=== PATIENT | male | born 1950 | race Caucasian/White ===

== ENCOUNTER 2017-07-21 07:17 | Day surgery (SDC) | payer MEDICARE, BC ==
[~2017-07-21 07:17] MED LIST: Lidocaine 1% PF 2 ML SDV INJECT SCH; Pilocarpine 4% Ophth Soln 15 ML Bot EYERT SCH
[2017-07-21] MEDS: Polymyxin B/Trimethoprim 10 ML Bottle EYERT SCH ×3 (07:26→09:14)
--- NOTE | 2017-07-21 07:28 | PCM.PREANE ---
Preanesthetic Assessment - Anesthesia/Transfusion/Family Hx Anesthesia History: Prior Anesthesia Without Reaction Family History of Anesthesia Reaction: No - Review of Systems General: No Symptoms Pulmonary: No Symptoms Cardiovascular: Other (HTN) Gastrointestinal: No Symptoms Neurological: No Symptoms Other: Reports: None - Physical Assessment NPO Status Date: 07/20/17 NPO Status Time: 21:30 Pulse: 64 O2 Sat by Pulse Oximetry: 96 Respiratory Rate: 16 Blood Pressure: 161/90 Height: 1.78 m Weight: 102.058 kg ASA Class: 2 Mental Status: Alert & Oriented x3 Airway Class: Mallampati = 2 Dentition: Reports: Normal Dentition Thyro-Mental Finger Breadths: 3 Mouth Opening Finger Breadths: 3 ROM/Head Extension: Full Lungs: Clear to Auscultation, Normal Respiratory Effort Cardiovascular: Regular Rate, Regular Rhythm - Allergies Allergies/Adverse Reactions: Allergies Allergy/AdvReac Type Severity Reaction Status Date / Time alcohol Allergy Redness Verified 07/20/17 12:47 amlodipine [From [facility]] AdvReac Headache Verified 07/20/17 12:47 metoprolol AdvReac Headache Verified 07/20/17 12:47 - Blood Blood Available: No Product(s) Available: None - Anesthesia Plan Pre-Op Medication Ordered: None - Acknowledgements Anesthesia Type Planned: MAC Pt an Appropriate Candidate for the Planned Anesthesia: Yes Alternatives and Risks of Anesthesia Discussed w Pt/Guardian: Yes Pt/Guardian Understands and Agrees with Anesthesia Plan: Yes PreAnesthesia Questionnaire Cardiovascular History: Reports: Hypertension Other Cardiovascular History: SVT (cardiac ablation done in September 2015), palpitations Other Gastrointestinal History: liver lesion Other Genitourinary History: erectile dysfunction Neurological History: Reports: Headaches, Chronic - Past Surgical History GI Surgical History: Reports: Appendectomy, Other (See Below) - SUBSTANCE USE Smoking Status *Q: Never Smoker Tobacco Use Within Last Twelve Months: No Second Hand Smoke Exposure: No Recreational Drug Use History: No - HOME MEDS Home Medications: Home Meds Losartan Potassium 25 mg PO DAILY 12/30/15 [History] - CURRENT (IN HOUSE) MEDS Current Meds: Current Medications Brimonidine Tartrate (Alphagan 0.2% Ophth Soln) 0 ml EYERT ASDIRECTED LENNOX Stop: 07/21/17 18:00 Cefuroxime Sodium (Zinacef) 0 mg EYERT ASDIRECTED LENNOX Stop: 07/21/17 18:00 Lidocaine HCl (Xylocaine-Mpf 1%) 10 ml INJECT ASDIRECTED LENNOX Stop: 07/21/17 18:00 Phenylephrine HCl (Jonas-Synephrine 2.5% Ophth Soln) 0 ml EYERT ASDIRECTED LENNOX Stop: 07/21/17 18:00 Pilocarpine HCl (Pilocar 4% Ophth Soln) 0 ml EYERT ASDIRECTED LENNOX Stop: 07/21/17 18:00 Polymyxin/Trimethoprim Sulfate (Polytrim Ophth Soln) 0 ml EYERT ASDIRECTED LENNOX Stop: 07/21/17 18:00 Tetracaine HCl (Tetracaine 0.5% Steri-Unit Amy) 0 ml EYERT ASDIRECTED LENNOX Stop: 07/21/17 18:00 Tropicamide (Mydriacyl 1% Oph Soln) 0 ml EYERT ASDIRECTED LENNOX Stop: 07/21/17 18:00
[2017-07-21] MEDS: Brimonidine 0.2% Ophth Soln 5 ML Bottle EYERT SCH ×3 (07:30→09:14)
[2017-07-21] MEDS: Phenylephrine 2.5% Ophth Soln 2 ML Bot EYERT SCH ×5 (07:34→08:52)
[2017-07-21] MEDS: Tetracaine HCl/PF 0.5% 4 ML Bottle EYERT SCH ×2 (08:36→09:00)
[2017-07-21] MEDS: Cefuroxime 10 MG/ML SYRINGE EYERT SCH ×2 (09:13→09:42)
[2017-07-21 09:31] VITALS: BP 149/90
--- NOTE | 2017-07-21 09:35 | PCM48HPAN ---
Post Anesthesia Note - EVALUATION WITHIN 48HRS OF ANESTHETIC Vital Signs in Normal Range: Yes Patient Participated in Evaluation: Yes Respiratory Function Stable: Yes Airway Patent: Yes Cardiovascular Function Stable: Yes Hydration Status Stable: Yes Pain Control Satisfactory: Yes Nausea and Vomiting Control Satisfactory: Yes Mental Status Recovered: Yes
== END 2017-07-21 09:25 | disposition home or self-care (01) ==
LOC: JD.SDS 07:17
PROVIDERS: ATTEND Ophthalmology
DX: H25.811 Combined forms of age-related cataract, right eye (principal); H02.831 Dermatochalasis of right upper eyelid; H02.834 Dermatochalasis of left upper eyelid; I10 Essential (primary) hypertension; N52.9 Male erectile dysfunction, unspecified; Z88.8 Allergy status to other drugs, medicaments and biological substances; Z91.048 Other nonmedicinal substance allergy status; Z79.899 Other long term (current) drug therapy; Z98.890 Other specified postprocedural states; Z98.42 Cataract extraction status, left eye; Z96.1 Presence of intraocular lens; Z90.49 Acquired absence of other specified parts of digestive tract
CPT/HCPCS: 66984; A9270; C1780; J0697

== ENCOUNTER 2017-10-28 08:49 | Emergency (ER) | payer MEDICARE, BC ==
[2017-10-28] MEDS ORDERED: Sodium Chloride 0.9% 10 ML Syringe FLUSH PRN (08:57)
--- NOTE | 2017-10-28 09:39 | EDM.PDOC ---
ED HPI GENERAL MEDICAL PROBLEM - General Chief Complaint: Chest Pain Stated Complaint: CHEST PAIN Time Seen by Provider: 10/28/17 08:57 Source of Information: Reports: Patient, RN Notes Reviewed - History of Present Illness INITIAL COMMENTS - FREE TEXT/NARRATIVE: 67-year-old male comes in with intermittent anterior chest tightness and heaviness this morning. He also states that when he was standing, light activity he started feeling really weak dizzy and lightheaded. He did not pass out but felt he was about to pass out. He has had history of what sounds like SVT in the past. He states he had an ablation 2 years ago. He still Does get occasional symptoms of palpitations and "heart racing but not as severe or prolonged as prior to the ablation. He did not have palpitations this morning at the time of his dizziness. He has had no abdominal pain nausea vomiting, cough, fever or chills. Chest Pain Score (Numeric/FACES): 3 - Related Data Allergies Allergy/AdvReac Type Severity Reaction Status Date / Time alcohol Allergy Redness Verified 10/28/17 08:56 amlodipine [From [facility]] AdvReac Headache Verified 10/28/17 08:56 metoprolol AdvReac Headache Verified 10/28/17 08:56 N-saids Allergy Headache Uncoded 10/28/17 10:47 Home Meds: Home Meds Losartan Potassium 25 mg PO DAILY 12/30/15 [History] Past Medical History Cardiovascular History: Reports: Hypertension Other Cardiovascular History: SVT (cardiac ablation done in September 2015), palpitations Respiratory History: Reports: SOB Other Gastrointestinal History: liver lesion Other Genitourinary History: erectile dysfunction Neurological History: Reports: Concussion - Past Surgical History Other HEENT Surgeries/Procedures: L cataract surgery, has cataract in R eye but no surgery yet GI Surgical History: Reports: Appendectomy, Other (See Below) Other GI Surgeries/Procedures: perforated colon. Social & Family History - Tobacco Use Smoking Status *Q: Never Smoker Second Hand Smoke Exposure: No - Caffeine Use Caffeine Use: Reports: None - Recreational Drug Use Recreational Drug Use: No ED ROS GENERAL - Review of Systems Review Of Systems: See Below Constitutional: Denies: Fever, Chills, Diaphoresis HEENT: Denies: Throat Pain, Vertigo Respiratory: Denies: Shortness of Breath, Pleuritic Chest Pain, Cough Cardiovascular: Reports: Chest Pain, Lightheadedness. Denies: Palpitations GI/Abdominal: Denies: Abdominal Pain, Nausea, Vomiting Musculoskeletal: Denies: Neck Pain, Shoulder Pain, Arm Pain, Back Pain Skin: Reports: No Symptoms Neurological: Reports: Dizziness ED EXAM, GENERAL - Physical Exam Exam: See Below General Appearance: Alert, No Apparent Distress Eye Exam: Bilateral Eye: PERRL Throat/Mouth: Normal Inspection, Normal Oropharynx Head: Atraumatic. No: Facial Swelling Neck: Supple, Full Range of Motion Respiratory/Chest: No Respiratory Distress, Lungs Clear, Normal Breath Sounds Cardiovascular: Regular Rate, Rhythm GI/Abdominal: Soft, Non-Tender Extremities: Normal Inspection. No: Pedal Edema, Leg Pain Neurological: Alert, Oriented, No Motor/Sensory Deficits Skin Exam: Warm, Dry, Normal Color EKG INTERPRETATION EKG Date: 10/28/17 Rhythm: NSR P-Wave: Present QRS: Normal ST-T: Other (Slight ST depression in V2 and V3, T-wave inversion in lead III.) Course - Vital Signs Last Recorded V/S: Last Vital Signs Temp 97.2 F 10/28/17 09:04 Pulse 69 10/28/17 09:04 Resp 16 10/28/17 09:04 BP 161/95 H 10/28/17 09:04 Pulse Ox 100 10/28/17 09:04 - Orders/Labs/Meds Orders: Active Orders 24 hr Category Date Time Status EKG 12 Lead [EKG Documentation Completion] [RC] STAT Care 10/28/17 08:58 Active Peripheral IV Care [RC] . DIRECTED Care 10/28/17 08:58 Active Sodium Chloride 0.9% [Saline Flush] Med 10/28/17 08:57 Active 10 ml FLUSH ASDIRECTED PRN Peripheral IV Insertion Adult [OM.PC] Stat Oth 10/28/17 08:58 Ordered Medication Orders Sodium Chloride (Saline Flush) 10 ml FLUSH ASDIRECTED PRN PRN Reason: Keep Vein Open Last Admin: 10/28/17 09:09 Dose: 10 ml Labs: Laboratory Tests 10/28/17 10/28/17 10/28/17 Range/Units 09:09 09:09 11:10 WBC 6.16 (4.23-9.07) K/mm3 RBC 5.20 (4.63-6.08) M/mm3 Hgb 15.5 (13.7-17.5) gm/L Hct 45.6 (40.1-51.0) % MCV 87.7 (79.0-92.2) fl MCH 29.8 (25.7-32.2) pg MCHC 34.0 (32.2-35.5) g/dl RDW Std Deviation 45.1 H (35.1-43.9) fL Plt Count 194 (163-337) K/mm3 MPV 9.9 (9.4-12.3) fl Neut % (Auto) 65.0 (34.0-67.9) % Lymph % (Auto) 22.4 (21.8-53.1) % Crawford % (Auto) 9.3 (5.3-12.2) % Eos % (Auto) 3.1 (0.8-7.0) Baso % (Auto) 0.2 (0.1-1.2) % Neut # (Auto) 4.01 (1.78-5.38) K/mm3 Lymph # (Auto) 1.38 (1.32-3.57) K/mm3 Crawford # (Auto) 0.57 (0.30-0.82) K/mm3 Eos # (Auto) 0.19 (0.04-0.54) K/mm3 Baso # (Auto) 0.01 (0.01-0.08) K/mm3 Sodium 141 (136-145) mEq/L Potassium 4.5 (3.5-5.1) mEq/L Chloride 107 (98-107) mEq/L Carbon Dioxide 26 (21-32) mEq/L Anion Gap 12.5 (5-15) BUN 27 H (7-18) mg/dL Creatinine 1.2 (0.7-1.3) mg/dL Est Cr Clr Drug Dosing 62.52 mL/min Estimated GFR (MDRD) > 60 (>60) mL/min BUN/Creatinine Ratio 22.5 H (14-18) Glucose 85 (80-115) mg/dL Calcium 9.2 (8.5-10.1) mg/dL Total Bilirubin 0.4 (0.2-1.0) mg/dL AST 30 (15-37) U/L ALT 44 (16-63) U/L Alkaline Phosphatase 72 (46-116) U/L Troponin I < 0.017 < 0.017 (0.00-0.056) ng/mL Total Protein 7.4 (6.4-8.2) g/dl Albumin 3.9 (3.4-5.0) g/dl Globulin 3.5 gm/dL Albumin/Globulin Ratio 1.1 (1-2) Meds: Medications Generic Name Dose Route Start Last Admin Trade Name Katelyn PRN Reason Stop Dose Admin Sodium Chloride 10 ml 10/28/17 08:57 10/28/17 09:09 Saline Flush FLUSH 10 ml ASDIRECTED PRN Administration Keep Vein Open - Re-Assessments/Exams Free Text/Narrative Re-Assessment/Exam: 10/28/17 10:00. Patient does present with chest pain as documented. However he does get this somewhat frequently. He has seen his wire spiral binder with this in the past and wire spiral binder has told him "it is not your heart". He comes in today because he also did become weak, lightheaded and dizzy for a short period of time when standing. Discomfort at time of my exam is almost gone. His EKG is normal. When I did ask about aspirin he states that "I get headaches from aspirin, I do not tolerate aspirin" so aspirin not given at this time. 10:35. Initial troponins come back negative, chest x-ray normal, other labs normal. Departure - Departure Time of Disposition: 12:05 Disposition: Home, Self-Care 01 Condition: Fair Clinical Impression: Atypical chest pain Referrals: Scott Watkins MD [Primary Care Provider] - Forms: ED Department Discharge Additional Instructions: Your EKG, chest x-ray, lab work including cardiac marker, troponin 2 were all normal this morning. Continue with current medications, return to ED if symptoms worsening in any way, follow-up with your Environmental Marketer as needed. - My Orders Last 24 Hours: My Active Orders 10/28/17 08:57 Sodium Chloride 0.9% [Saline Flush] 10 ml FLUSH ASDIRECTED PRN 10/28/17 08:58 EKG 12 Lead [EKG Documentation Completion] [RC] STAT Peripheral IV Care [RC] . DIRECTED Peripheral IV Insertion Adult [OM.PC] Stat - Assessment/Plan Last 24 Hours: My Active Orders 10/28/17 08:57 Sodium Chloride 0.9% [Saline Flush] 10 ml FLUSH ASDIRECTED PRN 10/28/17 08:58 EKG 12 Lead [EKG Documentation Completion] [RC] STAT Peripheral IV Care [RC] . DIRECTED Peripheral IV Insertion Adult [OM.PC] Stat
--- NOTE | 2017-10-28 10:20 | CR ---
Chest: Portable view of the chest was obtained. Comparison: Prior chest x-ray of 12/30/15. Heart size is within normal limits for portable technique. Tortuous thoracic aorta is seen. Lungs are clear. Bony structures are grossly intact. Impression: 1. Nothing acute is identified on portable chest x-ray. Diagnostic code #2
[2017-10-28 12:38] VITALS: BP 158/98
== END 2017-10-28 12:35 | disposition home or self-care (01) ==
LOC: JD.ED 08:49
DX: R07.89 Other chest pain (principal); I10 Essential (primary) hypertension; Z79.899 Other long term (current) drug therapy; Z88.5 Allergy status to narcotic agent; Z88.8 Allergy status to other drugs, medicaments and biological substances; Z91.048 Other nonmedicinal substance allergy status
CPT/HCPCS: 36415; 71010; 80053; 84484; 85025; 93005; 99285; J7050; 93010; 99284-25

== ENCOUNTER 2022-10-17 10:31 | Emergency (ER) | payer MEDICARE, BC ==
[2022-10-17 10:47] VITALS: BP 128/89; PULSE 80
[2022-10-17] MEDS ORDERED: Sodium Chloride 0.9% 10 ML Syringe FLUSH PRN (10:47)
== END 2022-10-17 12:32 | disposition home or self-care (01) ==
LOC: JD.ED 10:31
DX: F43.9 Reaction to severe stress, unspecified (principal); R00.2 Palpitations; I10 Essential (primary) hypertension; Z88.8 Allergy status to other drugs, medicaments and biological substances; Z79.899 Other long term (current) drug therapy
CPT/HCPCS: 36415; 71045; 80053; 83880; 84484; 85025; 93005; 93225; 93226; 99285; J3490

== ENCOUNTER 2023-07-21 09:31 | Emergency (ER) | payer MEDICARE, BC ==
[2023-07-21 10:36] LABS: BASOPHILS PERCENT AUTO 0.2 % (0.0-1.0); EOSINOPHILS ABSOLUTE AUTO 0.1 K/mm3 (0.0-0.4); EOSINOPHILS PERCENT AUTO 2.5 % (0.0-6.0); HEMATOCRIT 44.3 % (42.0-52.0); IMMATURE GRAN ABSOLUTE AUTO 0.01 K/mm3 (0.00-0.05); IMMATURE GRAN PERCENT AUTO 0.2 % (0.0-0.4); LYMPHOCYTES ABSOLUTE AUTO 1.2 K/mm3 (1.0-4.8); MEAN CORPUSCULAR HEMOGLOBIN 30.3 pg (28.0-32.0); MEAN CORPUSCULAR HGB CONC 33.9 g/dl (32.0-36.0); MEAN CORPUSCULAR VOLUME 89.5 fl (83.0-99.0); MEAN PLATELET VOLUME 10.3 fl (9.4-12.4); MONOCYTES ABSOLUTE AUTO 0.4 K/mm3 (0.0-0.8); MONOCYTES PERCENT AUTO 8.1 % (0.0-8.0); NEUTROPHILS ABSOLUTE AUTO 3.5 K/mm3 (1.8-7.7); PLATELET COUNT,PLT 173 K/mm3 (150-400); RED BLOOD CELL COUNT 4.95 M/mm3 (4.52-5.90); WHITE BLOOD CELL COUNT,WBC 5.28 K/mm3 (3.9-11.3)
[2023-07-21 11:08] LABS: A/G RATIO 1.2 (1-2); ALBUMIN 3.7 g/dl (3.4-5.0); ANION GAP 11.4 (5-15); BILIRUBIN TOTAL 0.5 mg/dL (0.2-1.0); BUN/CREATININE RATIO 19.1 (14-18); CALCIUM 8.9 mg/dL (8.5-10.1); CREATININE 1.1 mg/dL (0.7-1.3); EST CRCL DRUG DOSING (CG) 62.68 mL/min; MAGNESIUM 1.9 mg/dL (1.8-2.4); POTASSIUM,K 4.4 mEq/L (3.5-5.1); PROTEIN TOTAL,TP 6.9 g/dl (6.4-8.2)
[2023-07-21 14:58] VITALS: BP 147/83; PULSE 45
== END 2023-07-21 12:10 | disposition home or self-care (01) ==
LOC: JD.ED 09:31
DX: R42 Dizziness and giddiness (principal); R00.1 Bradycardia, unspecified; I10 Essential (primary) hypertension; Z88.8 Allergy status to other drugs, medicaments and biological substances; Z88.6 Allergy status to analgesic agent; Z91.048 Other nonmedicinal substance allergy status; Z79.899 Other long term (current) drug therapy
CPT/HCPCS: 36415; 80053; 83735; 84484; 85025; 93005; 93010; 93246; 99282; 99284